=== PATIENT | male | born 1990 | race Caucasian/White ===

== ENCOUNTER 2019-05-23 14:09 | Observation (INO) ==
[2019-05-23] MEDS ORDERED: MoRPHine SULFATE 4 MG/ML 1 ML CARP\\VIAL IV STA ×2 (14:58→17:28)
[2019-05-23] MEDS ORDERED: SODIUM CHLORIDE 0.9% 1000ML 1,000 ML IV SCH (15:00)
[2019-05-23] MEDS ORDERED: ONDANSETRON INJ 2 MG/ML 2 ML VIAL IV STA (15:00)
--- NOTE | 2019-05-23 15:06 | Emergency Department Note ---
History of Present Illness General Chief complaint: Constipation Stated complaint: MODERATE LOWER ABD PAIN, CONSTIPATION Time Seen by Provider: 05/23/19 14:49 History of Present Illness Maximum Pain Intensity: 6 This 28-year-old male presents the ER with chief complaint of lower abdominal pain that started on Sunday night after eating dinner. The patient states after eating he started with lower abdominal pain and cramping that he rates at a 6 out of 10. He states the pain has been constant since Sunday evening. The patient states that after he ate on Sunday evening he had diarrhea all evening. Yesterday morning he had a very small bowel movement but has not had a bowel movement since then which is very unusual for him. The patient admits to some nausea but denies any vomiting. The patient denies any heartburn or fever. Home Medications Home Medications Medication Instructions Recorded Confirmed Type Truvada 1 tab PO DAILY 05/23/19 05/23/19 History buspirone 10 mg PO TID 05/23/19 05/23/19 History ferrous sulfate [iron] 0 mg PO DAILY 05/23/19 05/23/19 History fluoxetine 40 mg PO DAILY 05/23/19 05/23/19 History hydroxyzine pamoate [Vistaril] 25 mg PO BID PRN 05/23/19 05/23/19 History venlafaxine [Effexor XR] 75 mg PO DAILY 05/23/19 05/23/19 History verapamil [Verelan] 240 mg PO DAILY 05/23/19 05/23/19 History Allergies Allergy/AdvReac Type Severity Reaction Status Date / Time No Known Allergies Allergy Unverified 05/23/19 15:39 Past Med/Surg History Social History Preferred Language: [place]serratian Communication Ability: Effective Systems Designer Required: No Beliefs That Will Affect Care: None Current Living Situation: Alone Other Information That Helps Us Care for You: No Feels Safe at Home: Yes Safety Concerns: Feels Safe At This Time Smoking Status: Never smoker Hx Alcohol Use: Yes Alcohol type: beer and wine Hx Substance Use: No Review of Systems A total of 10 systems reviewed and were otherwise negative Physical Exam Vital Signs Vital Signs - 24 hr 05/23/19 14:33 05/23/19 15:30 Temperature 36.8 C Temperature Source Oral Sepsis Recent Fever Within 48 Hours No Sepsis New/Unexplained Change in Mental Status No Sepsis Action Taken by Nursing No Action Required Pulse Rate 109 H 101 H Pulse Rate [Apical] 101 H Pulse Rhythm Regular Pulse Rhythm [Apical] Regular Pulse Strength [Apical] Normal Respiratory Rate 16 16 Respiratory Effort / Characteristics Non-Labored Spontaneous Respiratory Depth Normal Respiratory Pattern Regular Blood Pressure 183/113 H Blood Pressure [Left Arm] 151/108 H Blood Pressure Mean 136 Blood Pressure Mean [Left Arm] 122 Blood Pressure Position [Left Arm] Lying Pulse Oximetry 97 96 Oxygen Delivery Method Room Air Room Air GENERAL: Obese 28-year-old male appears in no acute distress. MENTAL Status: Patient is alert and oriented x3 MOUTH: Mucosa is moist NECK: Supple, no lymphadenopathy noted. No carotid bruits noted. LUNGS: Clear auscultation without wheezes rales or rhonchi. CARDIAC: Regular rate and rhythm without murmur. Pulses is full and equal throughout. BACK: No CVA tenderness noted. ABDOMEN: Positive bowel sounds all 4 quadrants. Soft, tenderness over the entire lower abdomen with increased tenderness over the right lower quadrant with positive McBurney's point EXTREMITIES: No cyanosis or edema noted. Course Administered Medications Discontinued Medications Bacitracin (Bacitracin) Confirm Administered Dose 45 appln .ROUTE .STK-MED ONE Stop: 05/23/19 19:37 Last Admin: 05/23/19 21:28 Dose: 45 appln Documented by: [id number] Bupivacaine HCl (Marcaine 0.5% Mpf) Confirm Administered Dose 30 ml .ROUTE .STK- MED ONE Stop: 05/23/19 19:37 Last Admin: 05/23/19 22:00 Dose: 20 ml Documented by: [id number] Buspirone HCl (Buspar) 10 mg PO TID [facility] Stop: 06/23/19 08:59 Last Admin: 05/25/19 08:48 Dose: 10 mg Documented by: [id number] Admin: 05/24/19 21:34 Dose: 10 mg Documented by: [id number] Admin: 05/24/19 13:35 Dose: 10 mg Documented by: [id number] Admin: 05/24/19 08:49 Dose: 10 mg Documented by: [id number] Emtricitabine/Tenofovir (Truvada 200 Mg-300 Mg) 1 tab PO DAILY [facility] Stop: 06/23/19 08:59 Last Admin: 05/25/19 08:49 Dose: 1 tab Documented by: [id number] Admin: 05/24/19 08:51 Dose: 1 tab Documented by: [id number] Ferrous Sulfate (Feosol) 325 mg PO DAILY [facility] Stop: 06/23/19 08:59 Last Admin: 05/25/19 08:49 Dose: 325 mg Documented by: [id number] Admin: 05/24/19 08:50 Dose: 325 mg Documented by: [id number] Fluoxetine HCl (Prozac) 40 mg PO DAILY [facility] Stop: 06/23/19 08:59 Last Admin: 05/25/19 08:49 Dose: 40 mg Documented by: [id number] Admin: 05/24/19 08:50 Dose: 40 mg Documented by: [id number] Hydromorphone HCl (Dilaudid) 0.5 mg IV Q3H PRN PRN Reason: Pain Stop: 06/06/19 22:29 Last Admin: 05/25/19 04:16 Dose: 0.5 mg Documented by: [id number] Admin: 05/24/19 21:42 Dose: 0.5 mg Documented by: [id number] Sodium Chloride (Nss 1000ml) 1,000 mls @ 999 mls/hr IV .Q1H1M [facility] Stop: 05/23/19 16:00 Last Infusion: 05/23/19 16:52 Dose: 0 mls/hr Documented by: [id number] Admin: 05/23/19 15:32 Dose: 999 mls/hr Documented by: [id number] Cefoxitin Sodium (Mefoxin) 2,000 mg in 60 mls @ 100 mls/hr IV NOW STA Stop: 05/23/19 19:50 Last Infusion: 05/24/19 01:01 Dose: 0 mls/hr Documented by: [id number] Admin: 05/23/19 21:17 Dose: 100 mls/hr Documented by: [id number] Lactated Ringer's (Lr) 1,000 mls @ 80 mls/hr IV .[id number] [facility] Stop: 06/22/19 22:29 Last Admin: 05/25/19 11:45 Dose: Not Given Documented by: [id number] Infusion: 05/25/19 06:20 Dose: 80 mls/hr Documented by: [id number] Infusion: 05/25/19 01:35 Dose: 80 mls/hr Documented by: [id number] Infusion: 05/25/19 00:32 Dose: 0 mls/hr Documented by: [id number] Admin: 05/24/19 23:53 Dose: 80 mls/hr Documented by: [id number] Infusion: 05/24/19 23:53 Dose: 80 mls/hr Documented by: [id number] Infusion: 05/24/19 22:06 Dose: 80 mls/hr Documented by: [id number] Infusion: 05/24/19 17:54 Dose: 80 mls/hr Documented by: [id number] Infusion: 05/24/19 16:51 Dose: 0 mls/hr Documented by: [id number] Infusion: 05/24/19 14:11 Dose: 80 mls/hr Documented by: [id number] Admin: 05/24/19 11:00 Dose: 80 mls/hr Documented by: [id number] Infusion: 05/24/19 11:00 Dose: 80 mls/hr Documented by: [id number] Infusion: 05/24/19 06:38 Dose: 80 mls/hr Documented by: [id number] Infusion: 05/24/19 00:50 Dose: 80 mls/hr Documented by: [id number] Infusion: 05/24/19 00:15 Dose: 0 mls/hr Documented by: [id number] Admin: 05/24/19 00:15 Dose: 80 mls/hr Documented by: [id number] Cefoxitin Sodium 1,000 mg/ (Dextrose) 60 mls @ 100 mls/hr IV Q6H [facility] Stop: 05/26/19 01:59 Last Infusion: 05/24/19 11:21 Dose: 100 mls/hr Documented by: [id number] Infusion: 05/24/19 08:28 Dose: 100 mls/hr Documented by: [id number] Admin: 05/24/19 07:40 Dose: 100 mls/hr Documented by: [id number] Infusion: 05/24/19 00:50 Dose: 0 mls/hr Documented by: [id number] Admin: 05/24/19 00:14 Dose: 100 mls/hr Documented by: [id number] Ciprofloxacin (Cipro) 400 mg in 200 mls @ 100 mls/hr IV Q12H [facility]; Protocol Stop: 05/26/19 09:59 Last Infusion: 05/25/19 11:44 Dose: 100 mls/hr Documented by: [id number] Admin: 05/25/19 09:07 Dose: 100 mls/hr Documented by: [id number] Infusion: 05/24/19 23:47 Dose: 0 mls/hr Documented by: [id number] Admin: 05/24/19 21:34 Dose: 100 mls/hr Documented by: [id number] Infusion: 05/24/19 11:57 Dose: 0 mls/hr Documented by: [id number] Admin: 05/24/19 09:53 Dose: 100 mls/hr Documented by: [id number] Metronidazole (Flagyl) 500 mg in 100 mls @ 100 mls/hr IV Q8H [facility] Stop: 05/26/19 08:59 Last Infusion: 05/25/19 11:44 Dose: 100 mls/hr Documented by: [id number] Admin: 05/25/19 07:59 Dose: 100 mls/hr Documented by: [id number] Infusion: 05/25/19 01:35 Dose: 0 mls/hr Documented by: [id number] Admin: 05/25/19 00:32 Dose: 100 mls/hr Documented by: [id number] Infusion: 05/24/19 17:54 Dose: 0 mls/hr Documented by: [id number] Admin: 05/24/19 16:51 Dose: 100 mls/hr Documented by: [id number] Infusion: 05/24/19 11:22 Dose: 100 mls/hr Documented by: [id number] Admin: 05/24/19 09:53 Dose: 100 mls/hr Documented by: [id number] Ioversol (Optiray 320 100ml) 94 ml IV ONCE PRN PRN Reason: Interaction Checking Stop: 05/27/19 17:42 Last Admin: 05/23/19 17:44 Dose: 94 ml Documented by: [id number] Lidocaine HCl (Xylocaine 1% (Local)) Confirm Administered Dose 20 ml .ROUTE .STK-MED ONE Stop: 05/23/19 19:37 Last Admin: 05/23/19 22:00 Dose: 20 ml Documented by: [id number] Morphine Sulfate (Morphine Sulfate) 6 mg IV NOW STA Stop: 05/23/19 14:59 Last Admin: 05/23/19 15:33 Dose: Not Given Documented by: [id number] Morphine Sulfate (Morphine Sulfate) Confirm Administered Dose 6 mg .ROUTE .STK- MED ONE Stop: 05/23/19 15:24 Last Admin: 05/23/19 15:33 Dose: 6 mg Documented by: [id number] Morphine Sulfate (Morphine Sulfate) 4 mg IV NOW STA Stop: 05/23/19 17:29 Last Admin: 05/23/19 17:34 Dose: 4 mg Documented by: [id number] Ondansetron HCl (Zofran) 4 mg IV NOW STA Stop: 05/23/19 15:01 Last Admin: 05/23/19 15:32 Dose: 4 mg Documented by: [id number] Oxycodone/Acetaminophen (Percocet 5mg/325mg) 1 tab PO Q4H PRN PRN Reason: Pain Stop: 06/06/19 22:29 Last Admin: 05/24/19 17:56 Dose: 1 tab Documented by: [id number] Admin: 05/24/19 06:14 Dose: 1 tab Documented by: [id number] Admin: 05/24/19 02:11 Dose: 1 tab Documented by: [id number] Polyethylene Glycol (Miralax Powder Packet) 17 gm PO DAILY [facility] Stop: 06/23/19 09:44 Last Admin: 05/25/19 08:49 Dose: 17 gm Documented by: [id number] Admin: 05/24/19 09:56 Dose: 17 gm Documented by: [id number] Venlafaxine HCl (Effexor Extended Release) 75 mg PO DAILY [facility] Stop: 06/23/19 08:59 Last Admin: 05/25/19 08:48 Dose: 75 mg Documented by: [id number] Admin: 05/24/19 08:50 Dose: 75 mg Documented by: [id number] Verapamil HCl (Calan Sr) 240 mg PO DAILY [facility] Stop: 06/23/19 08:59 Last Admin: 05/25/19 08:48 Dose: 240 mg Documented by: [id number] Admin: 05/24/19 08:50 Dose: 240 mg Documented by: [id number] Medical Decision Making Differential Diagnosis Acute appendicitis, small bowel obstruction, gastroenteritis, mesenteric adenitis Medical Records Attestation: I reviewed the patient's medical records. Home Medications Current Medication List: was personally reviewed by me Laboratory Data Attestation: I reviewed the patient's lab results. Result diagrams: 05/25/19 04:45 05/23/19 15:25 Lab Results 05/23/19 05/23/19 05/23/19 Range/Units 15:25 15:25 15:26 WBC 15.57 H (4.8-10.8) K/uL RBC 5.52 (4.7-6.1) M/uL Hgb 17.1 (14.0-18.0) g/dL Hct 49.0 (42-52) % MCV 88.8 (80-100) fL MCH 31.0 (25-34) pg MCHC 34.9 (32-36) g/dL RDW Std Deviation 42.5 (36.4-46.3) fL RDW Coeff of Steven 13.0 (11.5-14.5) % Plt Count 299 (130-400) K/uL MPV 10.7 H (7.4-10.4) fL Immature Gran % (Auto) 0.3 % Neut % (Auto) 78.5 % Lymph % (Auto) 12.7 % [place]bert % (Auto) 7.8 % Eos % (Auto) 0.5 % Baso % (Auto) 0.2 % Immature Gran # (Auto) 0.04 H (0.00-0.02) K/uL Neut # (Auto) 12.23 H (1.4-6.5) K/uL Lymph # (Auto) 1.98 (1.2-3.4) K/uL [place] # (Auto) 1.21 H (0.11-0.59) K/uL Eos # (Auto) 0.08 (0-0.5) K/uL Baso # (Auto) 0.03 (0-0.2) K/uL Sodium 135 L (136-145) mmol/L Potassium 3.7 (3.5-5.1) mmol/L Chloride 102 (98-107) mmol/L Carbon Dioxide 28 (21-32) mmol/L Anion Gap 5.0 (3-11) BUN 11 (7-18) mg/dl Creatinine 1.01 (0.6-1.4) mg/dl Est Cr Clr Drug Dosing 144.8 ml/min Est GFR ( Amer) 116.8 Est GFR (Non-Af Amer) 100.8 BUN/Creatinine Ratio 10.5 (10-20) Glucose 119 H (70-99) mg/dl Calcium 8.9 (8.5-10.1) mg/dl Total Bilirubin 0.5 (0.2-1) mg/dl AST 12 L (15-37) U/L ALT 30 (12-78) U/L Alkaline Phosphatase 81 (45-117) U/L Total Protein 7.9 (6.4-8.2) gm/dl Albumin 4.0 (3.4-5.0) gm/dl Globulin 3.9 (2.5-4.0) gm/dl Albumin/Globulin Ratio 1.0 (0.9-2) Lipase 81 (73-393) U/L Urine Color Yellow Urine Appearance Clear (Clear) Urine pH 6.5 (4.5-7.5) Ur Specific [place] <= 1.005 (1.000-1.030) Urine Protein Negative (Negative) Urine Glucose (UA) Negative (Negative) Urine Ketones Negative (Negative) Urine Blood Negative (Negative) Urine Nitrite Negative (Negative) Urine Bilirubin Negative (Negative) Urine Urobilinogen Negative (Negative) Ur Leukocyte Esterase Negative (Negative) Imaging Data Attestation: I personally reviewed and interpreted this imaging study as follows: My Impression: Acute appendicitis Radiologist's Impression: CT abd pelvis oral and IV con CLINICAL HISTORY: Lower abdominal pain/nausea COMPARISON STUDY: None. TECHNIQUE: The patient was scanned following administration of dilute oral contrast, and in a dynamic helical fashion during intravenous administration of 94 cc of Optiray 320. A dose lowering technique was utilized adhering to the principles of ALARA. CT DOSE: 1687.20 mGy.cm FINDINGS: Lower chest: The heart is normal in size and configuration, without pericardial effusion. The lung bases and pleural spaces are clear. Liver: There is borderline hepatic steatosis. No focal masses are visualized. The hepatic and portal veins appear patent. Gallbladder: Unremarkable. Spleen: Normal in size and attenuation. Pancreas: Unremarkable. Adrenal glands: Unremarkable. Kidneys: There is symmetric renal cortical enhancement. The kidneys are normal in size without hydronephrosis. Bowel: There are no transition zones to indicate bowel obstruction. There is no evidence of acute diverticulitis. There is a dilated appendix containing several appendicoliths. There is moderate infiltration of periappendiceal fat. The findings are indicative of acute appendicitis and surgical consultation is recommended. Peritoneum: There is trace pelvic free fluid. There is no free intraperitoneal air Vasculature: The abdominal aorta is normal in course and caliber. Adenopathy: There are minimally prominent para-aortic lymph nodes which are not pathologically enlarged by size criteria. There are prominent ileocolic lymph nodes, likely reactive Pelvic viscera: The bladder, and pelvic viscera are unremarkable. Skeletal structures: No destructive osseous lesions are seen. IMPRESSION: 1. Dilated fluid-filled appendix containing two appendicoliths. There is significant infiltration of periappendiceal fat. The findings are indicative of acute appendicitis and surgical consultation is recommended Electronically signed by: Jamar Leo M.D. 05/23/2019 5:52 PM Dictated: 05/23/[id number] Transcribed: 05/23/[id number] Blood Pressure Blood Pressure Findings: Elevated blood pressure Blood Pressure Disposition: Referred to patients primary care provider MDM Narrative Patient was evaluated. IV access was obtained. The patient was given 1 L normal saline wide open. He was given Zofran 4 mg IV push for nausea and morphine 6 mg IV for pain. CBC and differential, renal profile, LFTs and lipase levels were ordered. Urinalysis was ordered. CT abdomen pelvis with IV and oral contrast was ordered interpreted by the radiologist and myself as above. T he patient's white count was elevated at 15,000. Sodium was slightly low at 135. Urinalysis was negative. The patient CT was positive for acute appendicitis. Surgery was consulted. Impression & Plan Acute appendicitis Discharge Plan Visit Data *Final* Discharge Date/Time: 05/23/19 20:27 Chief Complaint: Constipation Stated Complaint: MODERATE LOWER ABD PAIN, CONSTIPATION ED Provider: Stas Mobley ED Midlevel Provider: Denisha Skelton Discharge Problem: Acute appendicitis Patient Disposition: Being Evaluated by Surgeon Condition: Good Discharge Instructions Interventions: ED Discharge Assessment Last Done: 05/23/19 20:27
[2019-05-23] MEDS ORDERED: MoRPHine SULFATE 2 MG/ML CARP ONE (15:23)
[2019-05-23 15:49] LABS: Basophils # (auto) 0.03 K/uL (0-0.2); Basophils % (auto) 0.2 %; Eosinophils # (auto) 0.08 K/uL (0-0.5); Eosinophils % (auto) 0.5 %; Hemoglobin 17.1 g/dL (14.0-18.0); Immature Granulocytes # (auto) 0.04 K/uL (0.00-0.02); Immature Granulocytes % (auto) 0.3 %; Lymphocytes # (auto) 1.98 K/uL (1.2-3.4); Lymphocytes % (auto) 12.7 %; Mean Corpuscular Hgb Conc 34.9 g/dL (32-36); Mean Corpuscular Volume 88.8 fL (80-100); Mean Platelet Volume 10.7 fL (7.4-10.4); Monocytes # (auto) 1.21 K/uL (0.11-0.59); Monocytes % (auto) 7.8 %; Neutrophils # (auto) 12.23 K/uL (1.4-6.5); Neutrophils % (auto) 78.5 %; Platelet Count 299 K/uL (130-400); RDW Standard Deviation 42.5 fL (36.4-46.3); Red Blood Count 5.52 M/uL (4.7-6.1); White Blood Count 15.57 K/uL (4.8-10.8)
[2019-05-23 16:02] LABS: Appearance Urine Clear (Clear); Bilirubin Urine Negative (Negative); Blood Urine Negative (Negative); Color Urine Yellow; Glucose Urine UA Negative (Negative); Ketones Urine Negative (Negative); Leukocyte Esterase Urine Negative (Negative); Nitrite Urine Negative (Negative); Protein Urine Negative (Negative); Specific Gravity Urine <= 1.005 (1.000-1.030); Urobilinogen Urine Negative (Negative); pH Urine 6.5 (4.5-7.5)
[2019-05-23 16:07] LABS: BUN Creatinine Ratio 10.5 (10-20); Calcium 8.9 mg/dl (8.5-10.1); Creatinine Clr Calc Pharmacy 144.8 ml/min; Est GFR (African American) 116.8; Est GFR (Non-African American) 100.8; Potassium 3.7 mmol/L (3.5-5.1)
[2019-05-23 16:16] LABS: Bilirubin,Total 0.5 mg/dl (0.2-1); Globulin 3.9 gm/dl (2.5-4.0); Total Protein 7.9 gm/dl (6.4-8.2)
[2019-05-23] MEDS ORDERED: IOVERSOL 100ml IV PRN (17:43)
--- NOTE | 2019-05-23 17:53 | CT Scan Report ---
CT abd pelvis oral and IV con CLINICAL HISTORY: Lower abdominal pain/nausea COMPARISON STUDY: None. TECHNIQUE: The patient was scanned following administration of dilute oral contrast, and in a dynamic helical fashion during intravenous administration of 94 cc of Optiray 320. A dose lowering techniqu e was utilized adhering to the principles of ALARA. CT DOSE: 1687.20 mGy.cm FINDINGS: Lower chest: The heart is normal in size and configuration, without pericardial effusion. The lung ba ses and pleural spaces are clear. Liver: There is borderline hepatic steatosis. No focal masses are visualized. The hepatic and portal veins appear patent. Gallbladder: Unremarkable. Spleen: Normal in size and attenuation. Pancreas: Unremarkable. Adrenal glands: Unremarkable. Kidneys: There is symmetric renal cortical enhancement. The kidneys are normal in size without hydron ephrosis. Bowel: There are no transition zones to indicate bowel obstruction. There is no evidence of acute div erticulitis. There is a dilated appendix containing several appendicoliths. There is moderate infiltr ation of periappendiceal fat. The findings are indicative of acute appendicitis and surgical consulta tion is recommended. Peritoneum: There is trace pelvic free fluid. There is no free intraperitoneal air Vasculature: The abdominal aorta is normal in course and caliber. Adenopathy: There are minimally prominent para-aortic lymph nodes which are not pathologically enlarg ed by size criteria. There are prominent ileocolic lymph nodes, likely reactive Pelvic viscera: The bladder, and pelvic viscera are unremarkable. Skeletal structures: No destructive osseous lesions are seen. IMPRESSION: 1. Dilated fluid-filled appendix containing two appendicoliths. There is significant infiltration of periappendiceal fat. The findings are indicative of acute appendicitis and surgical consultation is r ecommended Electronically signed by: Jamar Leo M.D. 05/23/2019 5:52 PM
--- NOTE | 2019-05-23 19:12 | Surgery Consultation ---
Date of Consultation May 23, 2019 Assessment & Plan (1) Acute appendicitis: pt is a 28 year-old male who presents to ER with 2 days history RLQ pain, IMP: acute appendicitis, Plan, I recommend to do laparoscopic appendectomy, possible open, D/w benefits, risk and alternatives of the surgery, the risks - infection, bleeding, injury bowel, abscess, pt understood, he agrees with the surgery, I answered all questions, History of Present Illness History of Present Illness Chief complaint: MODERATE LOWER ABDominal PAIN, CONSTIPATION History of Present Illness Maximum Pain Intensity: 6 This 28-year-old male presents the ER with chief complaint of lower abdominal pain that started on Sunday night after eating dinner. The patient states after eating he started with lower abdominal pain and cramping that he rates at a 6 out of 10. He states the pain has been constant since Sunday evening. The patient states that after he ate on Sunday evening he had diarrhea all evening. Yesterday morning he had a very small bowel movement but has not had a bowel movement since then which is very unusual for him. The patient admits to some nausea but denies any vomiting. The patient denies any heartburn or fever. I ( Yin Alcala MD ) reviewd pt's H/P , labs, CT scan with pt, pt is still have RLQ pain, with nausea, no vomiting, Allergies Allergy/AdvReac Type Severity Reaction Status Date / Time No Known Allergies Allergy Unverified 05/23/19 15:39 Home Medications Home Medications Medication Instructions Recorded Confirmed Type buspirone 10 mg PO TID 05/23/19 05/23/19 History emtricitabine-tenofovir (TDF) 1 tab PO DAILY 05/23/19 05/23/19 History [Truvada] ferrous sulfate [iron] 0 mg PO DAILY 05/23/19 05/23/19 History fluoxetine 40 mg PO DAILY 05/23/19 05/23/19 History hydroxyzine pamoate [Vistaril] 25 mg PO BID PRN 05/23/19 05/23/19 History venlafaxine [Effexor XR] 75 mg PO DAILY 05/23/19 05/23/19 History verapamil [Verelan] 240 mg PO DAILY 05/23/19 05/23/19 History Patient History Medical History Acute appendicitis No significant past medical history No significant past surgical history Social History Feels Safe at Home: Yes Smoking Status: Never smoker Review of Systems Review of Systems: All systems reviewed & are unremarkable except as noted in HPI & below Physical Exam Constitutional: WD/WN, vitals as above well developed and well nourished ENMT: external ear and nose normal, oropharynx normal Neck: trachea midline, no thyromegaly Respiratory: normal respiratory effort, lungs clear to auscultation normal respiratory effort Cardiovascular: RRR, no murmur, no edema Rate/Rhythm: regular rate and regular rhythm Heart Sounds: normal S1 and normal S2 Gastrointestinal (Abdomen): Percussion/Palpation: + abdomen tender and abdomen soft tenderness at RLQ, no rebound pain, BS +, no rigid, no guarding Musculoskeletal: no cyanosis or clubbing, extremities motor strength 5/5 Skin: no rashes, warm and dry Neurologic: patellar DTR's 2+ bilat, sensation intact Psychiatric: A+Ox3, euthymic affect Orientation: alert and oriented x 3 Lymphatic: no cervical or axillary lymphadenopathy Results & Data Vital Signs (Past 12 Hours) Vital Signs Temp Pulse Pulse Resp BP BP Pulse Ox 05/23/19 15:30 101 H 101 H 16 151/108 H 96 05/23/19 14:33 36.8 C 109 H 16 183/113 H 97 Laboratory Results Abnormal lab results 05/23/19 05/23/19 Range/Units 15:25 15:25 WBC 15.57 H (4.8-10.8) K/uL MPV 10.7 H (7.4-10.4) fL Immature Gran # (Auto) 0.04 H (0.00-0.02) K/uL Neut # (Auto) 12.23 H (1.4-6.5) K/uL [place] # (Auto) 1.21 H (0.11-0.59) K/uL Sodium 135 L (136-145) mmol/L Glucose 119 H (70-99) mg/dl AST 12 L (15-37) U/L Diagnostic Findings CT abd pelvis oral and IV con CLINICAL HISTORY: Lower abdominal pain/nausea COMPARISON STUDY: None. TECHNIQUE: The patient was scanned following administration of dilute oral contrast, and in a dynamic helical fashion during intravenous administration of 94 cc of Optiray 320. A dose lowering technique was utilized adhering to the principles of ALARA. CT DOSE: 1687.20 mGy.cm FINDINGS: Lower chest: The heart is normal in size and configuration, without pericardial effusion. The lung bases and pleural spaces are clear. Liver: There is borderline hepatic steatosis. No focal masses are visualized. The hepatic and portal veins appear patent. Gallbladder: Unremarkable. Spleen: Normal in size and attenuation. Pancreas: Unremarkable. Adrenal glands: Unremarkable. Kidneys: There is symmetric renal cortical enhancement. The kidneys are normal in size without hydronephrosis. Bowel: There are no transition zones to indicate bowel obstruction. There is no evidence of acute diverticulitis. There is a dilated appendix containing several appendicoliths. There is moderate infiltration of periappendiceal fat. The findings are indicative of acute appendicitis and surgical consultation is recommended. Peritoneum: There is trace pelvic free fluid. There is no free intraperitoneal air Vasculature: The abdominal aorta is normal in course and caliber. Adenopathy: There are minimally prominent para-aortic lymph nodes which are not pathologically enlarged by size criteria. There are prominent ileocolic lymph nodes, likely reactive Pelvic viscera: The bladder, and pelvic viscera are unremarkable. Skeletal structures: No destructive osseous lesions are seen. IMPRESSION: 1. Dilated fluid-filled appendix containing two appendicoliths. There is significant infiltration of periappendiceal fat. The findings are indicative of acute appendicitis and surgical consultation is recommended
[2019-05-23] MEDS ORDERED: cefOXitin 2,000 MG/60 ML BAG IV STA (19:15)
--- NOTE | 2019-05-23 19:15 | History & Physical Bridge Note ---
Date of Service May 23, 2019 History & Physical Bridge Note I have examined the patient, reviewed the History & Physical and in the interval since the performance of the History & Physical I have noted the following changes of clinical significance: no changes noted
[2019-05-23] MEDS ORDERED: BUPIVACAINE 0.5 % 5 MG/1 ML MPF 30ML VIAL ONE (19:36)
[2019-05-23] MEDS ORDERED: LIDOCAINE HCL 1% 20 ML VIAL ONE (19:36)
[2019-05-23] MEDS ORDERED: BACITRACIN OINT 15 GM TUBE ONE (19:36)
--- NOTE | 2019-05-23 20:49 | Anesthesiology Consultation ---
Date of Service May 23, 2019 Assessment & Plan Chart Review Chart Review: Acceptable Risk for Surgery and Patient NOT seen in Pre Admission Testing Consults Requested none ASA [id number] Proposed Anesthesia Anesthesia Type: General Risk / Benefits Reviewed With: PT / POA / Parent / Guardian, Accepts Plan and Informed Consent Obtained History Surgery Operation Date: 05/23/19 19:05 Proposed Procedures p Laparoscopic Appendectomy - Yin Alcala MD Height/Weight Height: 5 ft 9 in Weight: 129 kg Allergies Allergy/AdvReac Type Severity Reaction Status Date / Time No Known Allergies Allergy Unverified 05/23/19 15:39 Medications Home Medications Medication Instructions Recorded Confirmed Last Taken buspirone 10 mg PO TID 05/23/19 05/23/19 Unknown emtricitabine-tenofovir (TDF) 1 tab PO DAILY 05/23/19 05/23/19 Unknown [Truvada] ferrous sulfate [iron] 0 mg PO DAILY 05/23/19 05/23/19 Unknown fluoxetine 40 mg PO DAILY 05/23/19 05/23/19 Unknown hydroxyzine pamoate [Vistaril] 25 mg PO BID PRN 05/23/19 05/23/19 Unknown venlafaxine [Effexor XR] 75 mg PO DAILY 05/23/19 05/23/19 Unknown verapamil [Verelan] 240 mg PO DAILY 05/23/19 05/23/19 Unknown Active Medications Generic Name Dose Route Start Last Admin Trade Name Freq PRN Reason Stop Dose Admin Ioversol 94 ml 05/23/19 17:43 05/23/19 17:44 Optiray 320 100ml IV 05/27/19 17:42 94 ml ONCE PRN Administration Interaction Checking NPO Date Last Intake of Fluids: 05/23/19 Time Last Intake of Fluids: 17:00 Date Last Intake of Solids: 05/23/19 Time Last Intake of Solids: 11:00 Past Medical History Medical History Acute appendicitis HTN (hypertension) Morbid obesity No significant past medical history No significant past surgical history Sleep apnea Exercise / Class Metabolic Activity II 4-5 Yardwork/Stairs/Walk up hill Past Anesthesia History No Hx of Anesthesia Complications and No Family Hx of Anesthesia Complications History of PONV No Hx of PONV and No Hx of Motion Sickness Social History Smoking Status: Never smoker Hx Substance Use: No Physical Exam Vital Signs Last Vital Signs Temp 36.8 C 05/23/19 14:33 Pulse 101 H 05/23/19 15:30 Resp 16 05/23/19 15:30 BP 151/108 H 05/23/19 15:30 Pulse Ox 96 05/23/19 15:30 Constitutional + morbidly obese ENMT Mouth: no dentition abnormality Thyromental Distance: > or= 3.5 Finger Breadths Mallampati Class: II Neck normal visual inspection and trachea midline; neck extension not limited Respiratory normal respiratory effort Auscultation: lungs clear to auscultation bilaterally Cardiovascular Rate/Rhythm: regular rate and regular rhythm Heart Sounds: no murmur Musculoskeletal Spine: normal cervical ROM Neurologic moves all extremities Motor/Sensory: no sensory deficit Psychiatric Orientation: alert and oriented x 3 Testing Laboratory Results 05/23/19 15:25 05/23/19 15:25 Urine Color Yellow 05/23/19 15:26 Urine Appearance Clear (Clear) 05/23/19 15:26 Urine pH 6.5 (4.5-7.5) 05/23/19 15:26 Ur Specific [place] <= 1.005 (1.000-1.030) 05/23/19 15:26 Urine Protein Negative (Negative) 05/23/19 15:26 Urine Glucose (UA) Negative (Negative) 05/23/19 15:26 Urine Ketones Negative (Negative) 05/23/19 15:26 Urine Nitrite Negative (Negative) 05/23/19 15:26 Ur Leukocyte Esterase Negative (Negative) 05/23/19 15:26
[2019-05-23] MEDS ORDERED: PROPOFOL IV EMULSION 10 MG/ML 20 ML VIAL IV ONE (20:53)
[2019-05-23] MEDS ORDERED: SUCCINYLCHOLINE CHLORIDE 20 MG/ML 10 ML VIAL ONE (20:54)
[2019-05-23] MEDS ORDERED: fentaNYL citrate 100 MCG/2 ML VIAL ONE ×2 (20:55→21:30)
[2019-05-23] MEDS ORDERED: MIDAZOLAM HCL 1 MG/ML 2ML VIAL ONE (20:55)
[2019-05-23] MEDS ORDERED: DEXAMETHASONE SOD INJ 4 MG/ML VIAL ONE (21:33)
[2019-05-23] MEDS ORDERED: ONDANSETRON INJ 2 MG/ML 2 ML VIAL ONE (21:33)
[2019-05-23] MEDS ORDERED: METOPROLOL TARTRATE 1 MG/ML VIAL IV ONE (21:42)
[2019-05-23] MEDS ORDERED: GLYCOPYRROLATE 0.2 MG/ML VIAL ONE (22:19)
[2019-05-23] MEDS ORDERED: NEOSTIGMINE METHYLSULFATE 5 MG/5 ML SYR ONE (22:19)
--- NOTE | 2019-05-23 22:24 | Post Operative Brief Note ---
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
[2019-05-23] MEDS ORDERED: ONDANSETRON INJ 2 MG/ML 2 ML VIAL IV PRN ×2 (22:28→22:34)
[2019-05-23] MEDS ORDERED: PROMETHAZINE HCL 12.5 MG in SODIUM CHLORIDE 0.9% 50 ML IV PRN (22:34)
[2019-05-23] MEDS ORDERED: ATROPINE SULFATE 0.1 MG/ML 10ML SYR IV PRN (22:34)
[2019-05-23] MEDS ORDERED: LABETALOL HCL IV 5 MG/ML 20ML IV PRN (22:34)
[2019-05-23] MEDS ORDERED: NALOXONE HCL 0.4 MG/1 ML VIAL/CARP IV PRN (22:34)
[2019-05-23] MEDS ORDERED: HYDROmorphone INJ 1 MG/ML SYRINGE IV PRN (22:34)
[2019-05-23] MEDS ORDERED: ePHEDrine sulfate 50 MG/ML AMP IV PRN (22:34)
[2019-05-23] MEDS ORDERED: FLUMAZENIL 0.1 MG/1 ML 10 ML VIAL IV PRN (22:34)
--- NOTE | 2019-05-23 23:38 | Anesthesiology Progress Note ---
Date of Service May 23, 2019 Anesthesia Post Procedure Vital Signs Vital Signs: Temp Pulse Pulse Resp BP BP Pulse Ox 05/23/19 23:15 97 H 16 117/72 97 05/23/19 23:05 37.4 C 95 H 12 121/75 99 05/23/19 22:55 93 H 16 133/73 97 05/23/19 22:45 89 22 127/75 97 05/23/19 22:35 38.3 C H 97 H 16 124/75 98 05/23/19 15:30 101 H 101 H 16 151/108 H 96 05/23/19 14:33 36.8 C 109 H 16 183/113 H 97 Pain Intensity Abdomen: Pain Intensity: 3 Transfer of Care Handoff Completed per policy Notes Mental Status: alert / awake / arousable Patient Amnestic to Procedure: Yes Nausea / Vomiting: adequately controlled Pain: adequately controlled Airway Patency, RR, SpO2: stable & adequate BP & HR: stable & adequate Hydration State: stable & adequate Anesthetic Complications: no major complications apparent
[2019-05-24] MEDS: LACTATED RINGER'S 1,000 ML IV SCH ×3 (00:15→23:53)
[2019-05-24] MEDS: OXYCODONE/ACETAMINOPHEN 5mg/325mg TAB PO PRN ×3 (02:11→17:56)
--- NOTE | 2019-05-24 04:34 | Operative Report ---
DATE OF OPERATION: 05/23/2019 PREOPERATIVE DIAGNOSIS: Acute appendicitis. POSTOPERATIVE DIAGNOSIS: Acute appendicitis. OPERATION: Laparoscopic appendectomy. SURGEON: Yin Alcala M.D. ANESTHESIA: General. ESTIMATED BLOOD LOSS: About 10 mL: FINDINGS: Acute appendicitis, significant inflammation on the appendix with gangrene. COMPLICATIONS: None. INDICATIONS FOR THE PROCEDURE: This is a 28-year-old gentleman who presented to ED with 2-day history of abdominal pain and CT scan showing acute appendicitis. We recommended to take the patient to the OR, do the laparoscopic appendectomy, possible open. I did talk to the patient about the benefit and risk, alternate procedure. I indicated the risks may include, but not limited such as bleeding, infection, injury to the bowel, abscess. The patient understands. He signed informed consent and I answered all questions. DETAILS OF PROCEDURE: We brought the patient to the OR, put the patient in the supine position. The patient received SCD on bilateral legs to prevent DVT. Also, patient received 2 g cefoxitin IV for prophylactic antibiotic. The patient received general anesthesia without difficulties. The abdomen was appropriately prepped in routine sterile fashion. After time-out, I injected local anesthesia by using 1% lidocaine mixed with 0.5% Marcaine just above umbilicus, then made a small incision just above umbilicus, opened fascia, opened peritoneum under direct vision, put a Josue trocar in, connected to CO2 to create pneumoperitoneum. Flow rate is 6 liters per minute. Pressure not more than 14 mmHg. Once we got nice pneumoperitoneum, we put a camera in, looked around the abdomen, showing normal finding on the small bowel, large bowel; however, appendix showed significant inflammation, gangrene, confirmed diagnosis of acute appendicitis, minimal pelvic fluid. Once confirmed diagnosis of acute appendicitis, we put another two 5-mm trocar on the left lower quadrant. Then, we mobilized the appendix and we used harmonic to take down appendiceal, rechecked, no active bleeding. Then, we used a 45-mm Endo-HAFSA staple for transection on the base of the appendix, rechecked the staple line, intact and no active bleeding, no leak. Then, we removed the appendix through the catch bag, then we reinserted Josue trocar and connected to CO2 to create pneumoperitoneum, again looked around the abdomen. Once we suctioned the free fluid on the pelvic area, rechecked, no active bleeding, no leak from staple lines. Then, we removed all trocar under direct vision. No active bleeding from the trocar sites. Pneumoperitoneum was released. Then, I closed the umbilical incision in fascial layer by using #1 Vicryl [id number] x2, closed subcutaneous layer by using 2-0 Vicryl interrupted, closed skin by using 4-0 Vicryl continuous running, closed another two 5-mm trocars on the skin only by using 4-0 Vicryl. Then, we put the dressing on. The patient tolerated the procedure well. All instrument, needle and sponge count were correct x2 at the end of the case. The patient transferred to recovery room in stable condition. Specimen sent to pathology. I attest to the content of the Intraoperative Record and any orders documented therein. Any exception s are noted below.
[2019-05-24 05:48] LABS: Hematocrit (blood only) 46.6 % (42-52); Hemoglobin 16.1 g/dL (14.0-18.0); Immature Granulocytes # (auto) 0.04 K/uL (0.00-0.02); Immature Granulocytes % (auto) 0.2 %; Lymphocytes # (auto) 0.59 K/uL (1.2-3.4); Lymphocytes % (auto) 3.1 %; Mean Corpuscular Hemoglobin 31.1 pg (25-34); Mean Corpuscular Hgb Conc 34.5 g/dL (32-36); Mean Platelet Volume 11.2 fL (7.4-10.4); Monocytes # (auto) 0.75 K/uL (0.11-0.59); Monocytes % (auto) 3.9 %; Neutrophils # (auto) 17.92 K/uL (1.4-6.5); Neutrophils % (auto) 92.8 %; Platelet Count 285 K/uL (130-400); RDW Coefficient of Variation 13.1 % (11.5-14.5); RDW Standard Deviation 43.2 fL (36.4-46.3); Red Blood Count 5.18 M/uL (4.7-6.1)
[2019-05-24] MEDS: FLUOXETINE HCL 20 MG CAP PO SCH (08:50)
[2019-05-24] MEDS: FERROUS SULFATE 325 MG TAB PO SCH (08:50)
[2019-05-24] MEDS: VENLAFAXINE HCL XR 75 MG CAPXR PO SCH (08:50)
[2019-05-24] MEDS: VERAPAMIL HCL 240 MG TABCR PO SCH (08:50)
[2019-05-24] MEDS: EMTRICITABINE/TENOFOVIR TAB PO SCH (08:51)
[2019-05-24] MEDS: metroNIDAZOLE 500 MG/100 ML BAG IV SCH ×2 (09:53→16:51)
[2019-05-24] MEDS: CIPROFLOXACIN 400 MG/200 ML BAG IV SCH ×2 (09:53→21:34)
[2019-05-24] MEDS: POLYETHYLENE (MIRALAX) 17 GM PACK PO SCH (09:56)
--- NOTE | 2019-05-24 09:56 | Surgery Progress Note ---
Date of Service F/U S/P lap appy POD 1 doing better, less abdominal pain, no nausea, no vomiting,tolerated clear diet, WBC 19,000 May 24, 2019 Assessment & Plan (1) Acute appendicitis: pt is a 28 year-old male who presents to ER with 2 days history RLQ pain, IMP: acute appendicitis, Plan, I recommend to do laparoscopic appendectomy, possible open, D/w benefits, risk and alternatives of the surgery, the risks - infection, bleeding, injury bowel, abscess, pt understood, he agrees with the surgery, I answered all questions, 05/24/2019 9:55am doing better, base gangrene appendicitis, possible stay hospital one more day, change Cipro + flagyl, repeat labs in am, pt agrees with the plan, will F/U Physical Exam Constitutional: WD/WN, vitals as above well developed and well nourished ENMT: external ear and nose normal, oropharynx normal Neck: trachea midline, no thyromegaly Respiratory: normal respiratory effort, lungs clear to auscultation normal respiratory effort Cardiovascular: RRR, no murmur, no edema Rate/Rhythm: regular rate and reg ular rhythm Heart Sounds: normal S1 and normal S2 Gastrointestinal (Abdomen): Percussion/Palpation: abdomen soft tenderness on incision site, all incisions intact, no redness, Musculoskeletal: no cyanosis or clubbing, extremities motor strength 5/5 Skin: no rashes, warm and dry Neurologic: patellar DTR's 2+ bilat, sensation intact Psychiatric: A+Ox3, euthymic affect Orientation: alert and oriented x 3 Lymphatic: no cervical or axillary lymphadenopathy Results & Data Vital Signs (Past 12 Hours) Vital Signs Temp Pulse Pulse Resp BP Pulse Ox 05/24/19 06:45 36.8 C 111 H 18 123/78 96 05/24/19 06:10 109 H 05/24/19 02:32 37.2 C 115 H 16 141/85 H 96 05/24/19 01:36 37.1 C 117 H 16 138/89 96 05/24/19 00:34 37.6 C H 116 H 15 143/91 H 95 05/24/19 00:07 37.3 C 114 H 16 152/84 H 98 05/23/19 23:20 37.3 C 106 H 16 142/87 H 97 05/23/19 23:15 97 H 16 117/72 97 05/23/19 23:05 37.4 C 95 H 12 121/75 99 05/23/19 22:55 93 H 16 133/73 97 05/23/19 22:45 89 22 127/75 97 05/23/19 22:35 38.3 C H 97 H 16 124/75 98 Laboratory Results Abnormal lab results 05/23/19 05/23/19 05/24/19 Range/Units 15:25 15:25 04:30 WBC 15.57 H 19.30 H (4.8-10.8) K/uL MPV 10.7 H 11.2 H (7.4-10.4) fL Immature Gran # (Auto) 0.04 H 0.04 H (0.00-0.02) K/uL Neut # (Auto) 12.23 H 17.92 H (1.4-6.5) K/uL Lymph # (Auto) 0.59 L (1.2-3.4) K/uL [place] # (Auto) 1.21 H 0.75 H (0.11-0.59) K/uL Sodium 135 L (136-145) mmol/L Glucose 119 H (70-99) mg/dl AST 12 L (15-37) U/L
[2019-05-24] MEDS: HYDROmorphone INJ 0.5 MG/0.5 ML SYR IV PRN (21:42)
[2019-05-25] MEDS: metroNIDAZOLE 500 MG/100 ML BAG IV SCH ×2 (00:32→07:59)
[2019-05-25] MEDS: HYDROmorphone INJ 0.5 MG/0.5 ML SYR IV PRN (04:16)
[2019-05-25 05:57] LABS: Basophils # (auto) 0.02 K/uL (0-0.2); Basophils % (auto) 0.2 %; Eosinophils # (auto) 0.05 K/uL (0-0.5); Eosinophils % (auto) 0.4 %; Hematocrit (blood only) 41.7 % (42-52); Hemoglobin 14.3 g/dL (14.0-18.0); Immature Granulocytes # (auto) 0.04 K/uL (0.00-0.02); Immature Granulocytes % (auto) 0.3 %; Lymphocytes # (auto) 2.11 K/uL (1.2-3.4); Lymphocytes % (auto) 16.8 %; Mean Corpuscular Hemoglobin 30.8 pg (25-34); Mean Corpuscular Hgb Conc 34.3 g/dL (32-36); Mean Corpuscular Volume 89.7 fL (80-100); Mean Platelet Volume 10.8 fL (7.4-10.4); Monocytes # (auto) 1.08 K/uL (0.11-0.59); Monocytes % (auto) 8.6 %; Neutrophils # (auto) 9.25 K/uL (1.4-6.5); Neutrophils % (auto) 73.7 %; Platelet Count 284 K/uL (130-400); RDW Coefficient of Variation 13.2 % (11.5-14.5); RDW Standard Deviation 43.4 fL (36.4-46.3); Red Blood Count 4.65 M/uL (4.7-6.1); White Blood Count 12.55 K/uL (4.8-10.8)
[2019-05-25] MEDS: VERAPAMIL HCL 240 MG TABCR PO SCH (08:48)
[2019-05-25] MEDS: VENLAFAXINE HCL XR 75 MG CAPXR PO SCH (08:48)
[2019-05-25] MEDS: POLYETHYLENE (MIRALAX) 17 GM PACK PO SCH (08:49)
[2019-05-25] MEDS: FERROUS SULFATE 325 MG TAB PO SCH (08:49)
[2019-05-25] MEDS: EMTRICITABINE/TENOFOVIR TAB PO SCH (08:49)
[2019-05-25] MEDS: FLUOXETINE HCL 20 MG CAP PO SCH (08:49)
[2019-05-25] MEDS: CIPROFLOXACIN 400 MG/200 ML BAG IV SCH (09:07)
--- NOTE | 2019-05-25 10:26 | Discharge Summary ---
ADMITTING DIAGNOSIS: Acute appendicitis. DISCHARGE DIAGNOSIS: Acute appendicitis. OPERATION: Laparoscopic appendectomy. SURGEON: Dr. Yin Alcala. DETAILS OF DISCHARGE SUMMARY: This is a 28-year-old gentleman who presented to the ED with acute abdominal pain and the patient had a CT scan diagnosis of acute appendicitis, so we took the patient to the OR. We did a laparoscopic appendectomy. The patient tolerated the procedure well and the patient is walking on the hallway. He tolerated a regular diet. No nausea, no vomiting. PHYSICAL EXAMINATION: VITAL SIGNS: Temperature is 36.6, heart rate 84, respiratory rate 18, blood pressure 158/89, O2 saturation 98% on room air. GENERAL: The patient is alert, awake, oriented x3. HEENT: Within normal limitation. NEUROLOGIC: Intact. NECK: No JVD. CHEST: Bilateral lung sounds clear. HEART: Normal S1, S2. No murmur. ABDOMEN: Soft, no tenderness. All dressing intact. No drainage around the incision site. Bowel sounds positive. EXTREMITIES: No edema. The patient wanted to go home today. We discharged the patient home today. I gave the patient postop care instruction. The patient understands. I will follow up the patient in 1 week.
[2019-05-25] MEDS: LACTATED RINGER'S 1,000 ML IV SCH (11:45)
== END 2019-05-25 11:49 | disposition home or self-care (01) ==
LOC: ED 14:09 → OR 20:27 → 3E 20:27